=== PATIENT | female | born 1970 | race African-American/Black ===

== ENCOUNTER 2019-07-30 21:38 | Emergency (ER) | payer SELFPAY ==
[~2019-07-30] VITALS: Ht 152.4 cm; Wt 95.3 kg
--- NOTE | 2019-07-30 22:21 | NUR ---
URINE COLLECTED AND SENT TO LAB.
--- NOTE | 2019-07-30 22:23 | NUR ---
PT BIBSELF C/O GENERALIZED ABD PAIN +N/V/D X4DAYS. PT AAOX4, APPEARS UNCOMFORTABLE, SKIN WARM AND INTACT, VSS, RESPIRATION EVEN AND UNLABORED, NO ACUTE DISTRESS NOTED AT THIS TIME, PLACED ON MONITOR AND PULSE OX, WILL CONTINUE TO MONITOR.
[2019-07-30] MEDS ORDERED: PROMETHAZINE HCL 25 MG TABLET PO STA (22:38)
[2019-07-30 22:48] LABS: APPEARANCE,URINE Clear (CLEAR); BILIRUBIN,URINE Negative (NEGATIVE); BLOOD, URINE Trace-intact Ery/uL (NEGATIVE); COLOR,URINE Yellow (YELLOW); KETONES,URINE 15 (NEGATIVE); LEUKOCYTE ESTERASE ,URINE Trace (NEGATIVE); NITRITE, URINE Negative (NEGATIVE); PH,URINE 7.5 (5.0-8.0); PROTEIN,URINE Negative (NEGATIVE); UGLUCOSE Negative (NEGATIVE); UROBILINOGEN,URINE 0.2 EU/dL (0.2)
[2019-07-30] MEDS ORDERED: IV NS 0.9% 1,000 ML BAG IV ONE (23:00)
[2019-07-30] MEDS ORDERED: MORPHINE SULFATE INJ 2 MG/ML DISP.SYRIN IV ONE (23:00)
[2019-07-30] MEDS ORDERED: diphenhydrAMINE HCL 50 MG/ML VIAL IV ONE (23:00)
[2019-07-30] MEDS ORDERED: PROMETHAZINE HCL 25 MG TABLET ONE (23:26)
[2019-07-31 00:07] LABS: BACTERIA,URINE Few /HPF (None Seen); SQUAMOUS EPITHELIAL CELL,UR Few /HPF (None Seen)
[2019-07-31 00:16] LABS: BASOPHILS % (AUTO) 0.7 % (0.0-2.0); HEMATOCRIT 33 % (33-45); HEMOGLOBIN 11.4 g/dL (11.5-14.8); LYMPHOCYTES # (AUTO) 0.8 /CMM (0.8-4.8); LYMPHOCYTES % (AUTO) 13.4 % (20.0-44.0); MEAN CORPUSCULAR HGB CONC 34 g/dl (31.0-36.0); MEAN CORPUSCULAR VOLUME 87 fL (82-100); MONOCYTES # (AUTO) 0.1 /CMM (0.1-1.30); MONOCYTES % (AUTO) 0.9 % (2.0-12.0); PLATELET COUNT (AUTO) 294 /CMM (150-450); RED BLOOD CELL COUNT(AUTO) 3.84 MIL/uL (4.0-5.2); WHITE BLOOD COUNT (AUTO) 5.9 K/uL (4.3-11.0)
[2019-07-31 00:23] LABS: CALCIUM, SERUM 9.3 mg/dL (8.5-10.1); CREATININE 0.8 mg/dL (0.6-1.3); POTASSIUM 3.9 mmol/L (3.5-5.1)
[2019-07-31 00:29] LABS: ALBUMIN 3.5 g/dL (3.4-5.0); BILIRUBIN,DIRECT 0.1 mg/dL (0.0-0.2); BILIRUBIN,TOTAL 0.2 mg/dL (0.2-1.0); TOTAL PROTEIN, SERUM 7.7 g/dL (6.4-8.2)
[2019-07-31] MEDS ORDERED: diphenhydrAMINE HCL 50 MG/ML VIAL ONE ×2 (00:40→01:48)
[2019-07-31] MEDS ORDERED: MORPHINE SULFATE INJ 4 MG/ML DISP.SYRIN ONE ×2 (00:41→01:41)
[2019-07-31] MEDS ORDERED: IV NS 0.9% 250 ML IV ONE (00:45)
[2019-07-31] MEDS ORDERED: CT SWABBABLE VALVE TRANS SET 1 EA INFUS.SET MC ONE (00:45)
[2019-07-31] MEDS ORDERED: IOHEXOL-300 100 ML VIAL IV ONE (00:45)
--- NOTE | 2019-07-31 01:00 | NUR ---
PT BROUGHT BY RADIOLOGY TO CT
[2019-07-31] MEDS ORDERED: MORPHINE SULFATE INJ 2 MG/ML DISP.SYRIN IV ONE (01:30)
[2019-07-31] MEDS ORDERED: diphenhydrAMINE HCL 50 MG/ML VIAL IV ONE (02:00)
--- NOTE | 2019-07-31 02:37 | NUR ---
Patient discharged to home in stable condition. Written and verbal after care instructions given. Patient verbalizes understanding of instruction.IV removed. Catheter intact and site benign. Pressure and 4x4 applied to site. No bleeding noted.Pt ambulatory with a steady gait
[2019-07-31 03:45] VITALS: BP 154/79
== END 2019-07-31 02:37 | disposition home or self-care (01) ==
LOC: ER 21:42
DX: N39.0 Urinary tract infection, site not specified (principal); D64.9 Anemia, unspecified; R11.2 Nausea with vomiting, unspecified; G43.909 Migraine, unspecified, not intractable, without status migrainosus; Z98.890 Other specified postprocedural states; Z90.89 Acquired absence of other organs; Z88.6 Allergy status to analgesic agent; Z88.0 Allergy status to penicillin; Z88.8 Allergy status to other drugs, medicaments and biological substances
CPT/HCPCS: 36415; 74176; 80048; 80076; 81001; 83690; 85025; 87086; 96361; 96374; 96375; 96376; 99284; J1200 ×2; J2270 ×2; J7030; J7050; Q0169 ×2; Q9967; 81000-TC